=== PATIENT | female | born 2000 | race Caucasian/White ===

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

== ENCOUNTER 2021-05-25 13:04 | Emergency (ER) | payer BC ==
[~2021-05-25] VITALS: Ht 162.6 cm; Wt 90.9 kg
[2021-05-25 13:16] VITALS: TEMP 98.5
[2021-05-25 13:28] LABS: COLLECTION METHOD CLEAN CATCH
[2021-05-25 13:34] LABS: MUCOUS Present (NOT PRESENT); PH 7 (5-8); URINE APPEARANCE Hazy (CLEAR/HAZY); URINE BACTERIA None Seen /hpf (NONE SEEN); URINE BILIRUBIN Negative (NEGATIVE); URINE BLOOD Negative (NEGATIVE); URINE COLOR Yellow (YELLOW); URINE GLUCOSE Negative (NEGATIVE); URINE KETONE Negative (NEGATIVE); URINE LEUKOCYTE ESTERASE Negative (NEGATIVE); URINE NITRATE Negative (NEGATIVE); URINE PROTEIN(semi-quant) Negative (NEGATIVE); URINE RBC 0-2 /hpf (0-2); URINE UROBILINOGEN Negative (NEGATIVE)
[2021-05-25 13:37] LABS: BASO # 0.1 K/mm3 (0.0-0.2); BASO % 0.4 % (0.0-2.0); EOS # 0.5 K/mm3 (0.0-0.7); EOS % 3.7 % (0.0-4.0); GRAN # 9.9 K/mm3 (1.4-6.5); HEMATOCRIT 40.4 % (35.0-45.0); HEMOGLOBIN 13.9 g/dl (12.0-15.0); LYMPH # 2.1 K/mm3 (1.2-3.4); LYMPH % 15.9 % (20.0-51.0); MEAN CELL VOLUME 89 fl (80.0-95.0); MEAN CORPUSCULAR HEMOGLOBIN 31 pg (26-32); MEAN CORPUSCULAR HGB CONC 34 g/dl (33.0-37.0); MEAN PLATELET VOLUME 10.8 fl (7.4-10.4); MONO # 0.7 K/mm3 (0.1-0.6); MONO % 5.5 % (1.7-9.3); PLATELET COUNT 312 K/mm3 (130-400); RED BLOOD COUNT 4.53 M/mm3 (4.10-5.30)
[2021-05-25] MEDS ORDERED: UBRELVY50 MG PO (13:41)
[2021-05-25] MEDS ORDERED: EFFEXOR-XR150 MG PO (13:41)
[2021-05-25] MEDS ORDERED: ZOFRAN ODT8 MG PO (13:41)
[2021-05-25 13:52] LABS: ALBUMIN 3.9 gm/dL (3.5-5.0); BILIRUBIN,TOTAL 0.6 mg/dL (0.2-1.2); CALCIUM 9.5 mg/dL (8.4-10.2); CREATININE, serum 0.73 mg/dL (0.57-1.11); POTASSIUM 3.3 mmol/L (3.5-4.5); TOTAL PROTEIN 7.1 gm/dL (6.2-8.1)
[2021-05-25] MEDS ORDERED: BENTYL 20MG20 MG/TAB PO (14:39)
[2021-05-25 14:50] VITALS: BP 125/75; PULSE 90
== END 2021-05-25 14:52 | disposition home or self-care (01) ==
LOC: COL.ER 13:04
PROVIDERS: Emergency Medicine
DX: R05.9 Cough, unspecified (principal)
CPT/HCPCS: J7030; Q9967

== ENCOUNTER → 2021-06-20 | Outpatient (CLI) | payer BC ==
[~2021-06-20] MED LIST changes: +BENTYL 20MG20 MG/TAB PO; +EFFEXOR-XR150 MG PO; +UBRELVY50 MG PO; +ZOFRAN ODT8 MG PO
== END ==
LOC: COL.RAD 06-17 10:00
DX: R11.2 Nausea with vomiting, unspecified (principal); R19.7 Diarrhea, unspecified
CPT/HCPCS: A9537

== ENCOUNTER → 2021-06-23 | Outpatient (CLI) | payer OTHER | LOC: COL.RAD 08:25 | DX: M25.512 Pain in left shoulder (principal) | CPT/HCPCS: A9585; Q9967 ==

== ENCOUNTER 2021-10-06 13:30 | Outpatient (RCR) | payer OTHER | END 2021-10-09 | disposition home or self-care (01) | LOC: WSPT | DX: M75.42 Impingement syndrome of left shoulder (principal); S49.82XA Other specified injuries of left shoulder and upper arm, initial encounter ==

== ENCOUNTER 2021-11-01 11:15 | Outpatient (RCR) | payer OTHER | END 2021-11-09 | disposition home or self-care (01) | LOC: WSPT | DX: S49.82XD Other specified injuries of left shoulder and upper arm, subsequent encounter (principal); M75.42 Impingement syndrome of left shoulder ==

== ENCOUNTER → 2021-11-28 | Outpatient (CLI) | payer BC | LOC: COL.RAD 13:48 | DX: R10.2 Pelvic and perineal pain (principal) ==

== ENCOUNTER 2022-08-25 11:12 | Emergency (ER) | payer BC ==
[~2022-08-25] VITALS: Ht 162.6 cm; Wt 86.4 kg
[2022-08-25 11:16] VITALS: TEMP 98.2
[2022-08-25 11:26] LABS: COLLECTION METHOD CLEAN CATCH
[2022-08-25] MEDS ORDERED: Ondansetron 4 MG/2 ML VIAL IV ONE (11:30)
[2022-08-25] MEDS ORDERED: NS 1,000 ML IV ONE (11:30)
[2022-08-25 11:31] LABS: MUCOUS Present (NOT PRESENT); URINE BACTERIA None Seen /hpf (NONE SEEN); URINE RBC 0-2 /hpf (0-2)
[2022-08-25 11:35] LABS: PH 6.5 (5.0-8.5); URINE APPEARANCE Clear (CLEAR/HAZY); URINE BLOOD TRACE-INTACT (NEGATIVE); URINE COLOR Yellow (YELLOW); URINE GLUCOSE Negative (NEGATIVE); URINE KETONE Negative (NEGATIVE); URINE NITRATE Negative (NEGATIVE); URINE PROTEIN(semi-quant) Negative (NEGATIVE); URINE UROBILINOGEN 0.2 E.U/dL (0.2-1.0)
[2022-08-25 11:57] LABS: BASO # 0.1 K/mm3 (0.0-0.2); BASO % 0.6 % (0.0-2.0); EOS # 0.1 K/mm3 (0.0-0.7); EOS % 0.8 % (0.0-4.0); GRAN # 6.5 K/mm3 (1.4-6.5); GRAN % 74.1 % (42.2-75.2); HEMATOCRIT 41.7 % (35.0-45.0); HEMOGLOBIN 14.6 g/dl (12.0-15.0); LYMPH # 1.6 K/mm3 (1.2-3.4); LYMPH % 18.3 % (20.0-51.0); MEAN CELL VOLUME 89 fl (80.0-95.0); MEAN CORPUSCULAR HEMOGLOBIN 31 pg (26-32); MEAN CORPUSCULAR HGB CONC 35 g/dl (33.0-37.0); MEAN PLATELET VOLUME 10.9 fl (7.4-10.4); MONO # 0.5 K/mm3 (0.1-0.6); MONO % 5.9 % (1.7-9.3); PLATELET COUNT 293 K/mm3 (130-400); RED BLOOD COUNT 4.67 M/mm3 (4.10-5.30)
[2022-08-25] MEDS ORDERED: Ketorolac 15 MG/ML VIAL IV ONE (12:15)
[2022-08-25 12:29] LABS: ALBUMIN 4.5 gm/dL (3.5-5.0); BILIRUBIN,TOTAL 0.9 mg/dL (0.2-1.2); CALCIUM 9.7 mg/dL (8.4-10.2); CREATININE, serum 0.71 mg/dL (0.57-1.11); POTASSIUM 3.9 mmol/L (3.5-4.5); TOTAL PROTEIN 7.6 gm/dL (6.2-8.1)
[2022-08-25] MEDS ORDERED: Iohexol 300 - 100 ML VIAL IV ONE (13:20)
[2022-08-25] MEDS ORDERED: NS 100 ML IV SCH (13:29)
[2022-08-25] MEDS ORDERED: ZOFRAN ODT4 MG PO (14:49)
[2022-08-25 14:52] VITALS: BP 132/93; PULSE 84
== END 2022-08-25 14:58 | disposition home or self-care (01) ==
LOC: COL.ER 11:12
PROVIDERS: Physician Assistant
DX: R10.31 Right lower quadrant pain (principal); R11.0 Nausea; R31.9 Hematuria, unspecified
CPT/HCPCS: J1885; J2405; J7030; Q9967

== ENCOUNTER 2022-12-08 13:00 | Outpatient (RCR) | payer BC ==
[~2022-12-08 13:00] MED LIST changes: +ZOFRAN ODT4 MG PO
== END 2022-12-09 | disposition home or self-care (01) ==
LOC: WSPT
DX: M54.6 Pain in thoracic spine (principal)

== ENCOUNTER 2023-01-22 14:15 | Outpatient (RCR) | payer BC | END 2023-01-22 16:00 | disposition home or self-care (01) | LOC: WSPT 14:15 | DX: M54.6 Pain in thoracic spine (principal) ==